=== PATIENT | male | born 1985 ===

== ENCOUNTER 2018-07-12 18:28 | Emergency (ER) | payer OTHER ==
[2018-07-12] MEDS ORDERED: CETIRIZINE HCL 5 MG TABLET ONE (19:36)
[2018-07-12] MEDS ORDERED: FAMOTIDINE 20 MG TAB ONE (19:37)
[2018-07-12] MEDS ORDERED: predniSONE 20 MG TAB ONE (19:37)
--- NOTE | 2018-07-12 19:46 | ER ---
Nurse's Notes [facility] Name: Rip Soni Age: 33 yrs Sex: Male : 1985 Arrival Date: 07/12/2018 Time: 18:28 Bed 16 Private MD: Billy Mast E Diagnosis: Dermatitis, unspecified Presentation: 07/12 18:32 Presenting complaint: Patient states: " I think I got into some poison oak or ph something, the swelling on my face has been getting worse throughout the day." Redness and swelling noted to R side of face and L jaw area, also has rash to renetta arms, denies SOB. Transition of care: patient was not received from another setting of care. Onset: The symptoms/episode began/occurred this morning. Anaphylaxis evaluation, no signs or symptoms of anaphylaxis were noted. Onset of symptoms was July 12, 2018. Risk Assessment: Do you want to hurt yourself or someone else? Patient reports no desire to harm self or others. Initial Sepsis Screen: Does the patient meet any 2 criteria? No. Patient's initial sepsis screen is negative. Does the patient have a suspected source of infection? No. Patient's initial sepsis screen is negative. Care prior to arrival: Medication(s) given: Motrin, at 1500 and Benadryl x 2. 18:32 Method Of Arrival: Ambulatory ph 18:32 Acuity: RENEE 4 ph Triage Assessment: 18:40 General: Appears uncomfortable, Behavior is calm, cooperative. Pain: Denies pain. EENT: ls4 Oral mucosa is moist. Throat is clear Denies difficulty swallowing. Neuro: No deficits noted. Neuro: Level of Consciousness is awake, alert, Oriented to person, place, time, situation. Cardiovascular: No deficits noted. Respiratory: Airway is patent Respiratory effort is even, unlabored, Respiratory pattern is regular, Denies cough, shortness of breath labored breathing. GI: No deficits noted. Derm: Skin is intact, Skin is pink, warm \\T\\ dry. Rash noted that is on nose, left cheek and left jaw arms and legs. red raised patches. pt reports that they are itchy. Musculoskeletal: No deficits noted. Historical: - Allergies: 18:35 No Known Allergies; ph - Home Meds: 18:35 None [Active]; ph - PMHx: 18:35 None; ph - PSHx: 18:35 None; ph - Immunization history:: Adult Immunizations unknown. - Social history:: Smoking status: Patient/guardian denies using tobacco, never smoked. - Ebola Screening: : Patient negative for fever greater than or equal to 101.5 degrees Fahrenheit, and additional compatible Ebola Virus Disease symptoms Patient denies exposure to infectious person Patient denies travel to an Ebola-affected area in the 21 days before illness onset No symptoms or risks identified at this time. Screenin:44 Abuse screen: Denies threats or abuse. Denies injuries from another. Nutritional ls4 screening: No deficits noted. Tuberculosis screening: No symptoms or risk factors identified. Fall Risk None identified. Assessment: 18:45 Respiratory: Airway is patent Breath sounds are clear bilaterally. ls4 19:15 Reassessment: Patient appears in no apparent distress at this time. Patient and/or cc3 family updated on plan of care and expected duration. Pain level reassessed. Patient is alert, oriented x 3, equal unlabored respirations, skin warm/dry/pink. Received this male patient from morning shift [facility] as a case of dermatitis, still to be seen by the provider as endorsed. No IV cannula in situ. 19:55 Reassessment: Dr. Saldaña discharged home the patient with prescriptions given. No IV cc3 cannula in situ. Patient left ER vitally stable and ambulatory with his friend. Vital Signs: 18:34 BP 136 / 93; Pulse 75; Resp 18; Temp 97.6; Pulse Ox 98% on R/A; Weight 84.37 kg; Height ph 6 ft. 1 in. (185.42 cm); Pain 2/10; 19:30 BP 139 / 87; Pulse 74; Resp 17 S; Pulse Ox 99% on R/A; Pain 0/10; cc3 18:34 Body Mass Index 24.54 (84.37 kg, 185.42 cm) ph ED Course: 18:28 Patient arrived in ED. as 18:28 Billy Mast MD is Private Physician. as 18:34 Triage completed. ph 18:35 Arm band placed on. ph 18:44 Patient has correct armband on for positive identification. Bed in low position. Call ls4 light in reach. Side rails up X 1. Verbal reassurance given. 18:44 No provider procedures requiring assistance completed. ls4 19:00 Patel Saldaña MD is Attending Physician. 19:01 Idnaia Wilson is Primary Nurse. cc3 19:55 Patient did not have IV access during this emergency room visit. jb4 Administered Medications: 19:30 Drug: predniSONE 40 mg Route: PO; cc3 19:55 Follow up: Response: No adverse reaction cc3 19:30 Drug: Pepcid 20 mg Route: PO; cc3 19:55 Follow up: Response: No adverse reaction cc3 19:30 Drug: ZyrTEC - Cetirizine 10 mg Route: PO; cc3 19:55 Follow up: Response: No adverse reaction cc3 Outcome: 19:46 Discharge ordered by MD. 19:55 Discharged to home ambulatory. jb4 19:55 Condition: stable 19:55 Discharge instructions given to patient, family, Instructed on discharge instructions, follow up and referral plans. medication usage, Demonstrated understanding of instructions, follow-up care, medications, Prescriptions given X 3. 19:55 Patient left the ED. jb4 Signatures: Taty Pelletier as Ayla West, RN RN wOen Quintana RN RN jb4 Patel Saldaña MD MD Idania Wilson cc3 Lola Chaudhary, RN RN ls4
--- NOTE | 2018-07-12 19:47 | EDPHYS ---
Physician Documentation [facility] Name: Rip Soni Age: 33 yrs Sex: Male : 1985 Arrival Date: 07/12/2018 Time: 18:28 Bed 16 Private MD: Billy Mast E ED Physician Patel Saldaña HPI: 07/12 19:43 This 33 yrs old Male presents to ER via Ambulatory with complaints of Allergic Reaction.gs 19:43 The patient presents with rash. Onset: The symptoms/episode began/occurred acutely, 2 gs day(s) ago, and became worse and became persistent. Associated signs and symptoms: Pertinent negatives: shortness of breath. Possible causes: poison marbella, poison oak. At home the patient or guardian has treated the symptoms with Benadryl. Severity of symptoms: At their worst the symptoms were moderate in the emergency department the symptoms are unchanged. The patient has experienced similar episodes in the past, a few times. The patient has not recently seen a physician. Historical: - Allergies: 18:35 No Known Allergies; ph - Home Meds: 18:35 None [Active]; ph - PMHx: 18:35 None; ph - PSHx: 18:35 None; ph - Immunization history:: Adult Immunizations unknown. - Social history:: Smoking status: Patient/guardian denies using tobacco, never smoked. - Ebola Screening: : Patient negative for fever greater than or equal to 101.5 degrees Fahrenheit, and additional compatible Ebola Virus Disease symptoms Patient denies exposure to infectious person Patient denies travel to an Ebola-affected area in the 21 days before illness onset No symptoms or risks identified at this time. ROS: 19:43 All other systems are negative. gs Exam: 19:43 Eyes: Pupils equal round and reactive to light, extra-ocular motions intact. Lids and gs lashes normal. Conjunctiva and sclera are non-icteric and not injected. Cornea within normal limits. Periorbital areas with no swelling, redness, or edema. ENT: Nares patent. No nasal discharge, no septal abnormalities noted. Tympanic membranes are normal and external auditory canals are clear. Oropharynx with no redness, swelling, or masses, exudates, or evidence of obstruction, uvula midline. Mucous membranes moist. Neck: Trachea midline, no thyromegaly or masses palpated, and no cervical lymphadenopathy. Supple, full range of motion without nuchal rigidity, or vertebral point tenderness. No Meningismus. Chest/axilla: Normal chest wall appearance and motion. Nontender with no deformity. No lesions are appreciated. Cardiovascular: Regular rate and rhythm with a normal S1 and S2. No gallops, murmurs, or rubs. Normal PMI, no JVD. No pulse deficits. Respiratory: Lungs have equal breath sounds bilaterally, clear to auscultation and percussion. No rales, rhonchi or wheezes noted. No increased work of breathing, no retractions or nasal flaring. Abdomen/GI: Soft, non-tender, with normal bowel sounds. No distension or tympany. No guarding or rebound. No evidence of tenderness throughout. Back: No spinal tenderness. No costovertebral tenderness. Full range of motion. MS/ Extremity: Pulses equal, no cyanosis. Neurovascular intact. Full, normal range of motion. Neuro: Awake and alert, GCS 15, oriented to person, place, time, and situation. Cranial nerves II-XII grossly intact. Motor strength 5/5 in all extremities. Sensory grossly intact. Cerebellar exam normal. Normal gait. 19:43 Head/face: Noted is rash, of the left jaw and right uatsdin. 19:43 Skin: rash a moderate rash is noted, rash can be described as excoriated, macular, contact dermatitis, on the right cheek and left jaw. 19:45 Skin: on the right hand and left hand. Vital Signs: 18:34 BP 136 / 93; Pulse 75; Resp 18; Temp 97.6; Pulse Ox 98% on R/A; Weight 84.37 kg; Height ph 6 ft. 1 in. (185.42 cm); Pain 2/10; 19:30 BP 139 / 87; Pulse 74; Resp 17 S; Pulse Ox 99% on R/A; Pain 0/10; cc3 18:34 Body Mass Index 24.54 (84.37 kg, 185.42 cm) ph MDM: 19:15 Patient medically screened. gs 19:45 Differential diagnosis: angioedema, urticaria, contact dermatitis. Data reviewed: vital gs signs, nurses notes. Administered Medications: 19:30 Drug: predniSONE 40 mg Route: PO; cc3 19:55 Follow up: Response: No adverse reaction cc3 19:30 Drug: Pepcid 20 mg Route: PO; cc3 19:55 Follow up: Response: No adverse reaction cc3 19:30 Drug: ZyrTEC - Cetirizine 10 mg Route: PO; cc3 19:55 Follow up: Response: No adverse reaction cc3 Disposition: 07/12/18 19:46 Discharged to Home. Impression: Dermatitis, unspecified. - Condition is Stable. - Discharge Instructions: Contact Dermatitis, [id number]. - Prescriptions for Pepcid 20 mg Oral Tablet - take 1 tablet by ORAL route every 12 hours for 5 days; 10 tablet. Zyrtec 10 mg Oral Tablet - take 1 tablet by ORAL route once daily As needed; 20 tablet. Prednisone 20 mg Oral Tablet - take 2 tablet by ORAL route once daily for 5 days; 10 tablet. - Medication Reconciliation Form, Thank You Letter, Antibiotic Education, Prescription Opioid Use form. - Follow up: Private Physician; When: 2 - 3 days; Reason: Recheck today's complaints. Signatures: Ayla West RN RN Owen Quintana RN RN jb4 Patel Saldaña MD MD Idania Wilson 3 Lola Chaudhary RN RN ls4 Corrections: (The following items were deleted from the chart) 19:55 19:46 07/12/2018 19:46 Discharged to Home. Impression: Dermatitis, unspecified. jb4 Condition is Stable. Forms are Medication Reconciliation Form, Thank You Letter, Antibiotic Education, Prescription Opioid Use. Follow up: Private Physician; When: 2 - 3 days; Reason: Recheck today's complaints.
== END 2018-07-12 19:55 | disposition home or self-care (01) ==
LOC: ER 18:28
DX: L30.9 Dermatitis, unspecified (principal)
CPT/HCPCS: 99283; J7512

== ENCOUNTER 2018-07-14 07:21 | Emergency (ER) | payer OTHER ==
[2018-07-14] MEDS ORDERED: DEXAMETHASONE 10 MG/ML VIAL ONE (07:52)
[2018-07-14] MEDS ORDERED: DOXYCYCLINE 100 MG CAP PO ONE (07:53)
[2018-07-14] MEDS ORDERED: FAMOTIDINE 20 MG/2 ML VIAL IV ONE (07:53)
[2018-07-14] MEDS ORDERED: DIPHENHYDRAMINE 25 MG TAB/CAP ONE (07:53)
[2018-07-14] MEDS ORDERED: NA CHLORIDE 0.9% 1,000 ML ONE (07:53)
[2018-07-14] MEDS ORDERED: SMZ./TMP. 800/160 MG TABLET ONE (07:53)
[2018-07-14] MEDS ORDERED: MUPIROCIN 2% OINT 22GM TUBE TOP ONE (07:53)
[2018-07-14 07:58] LABS: Absolute Monocytes 0.7 K/uL (0.1-1.3); Absolute Neutrophil 5.8 K/uL (1.8-8.0); Basophils % 0.7 % (0-1.3); Eosinophils % 8.1 % (0-4.4); Hematocrit 41.6 % (39.6-49.0); Lymphocytes % 21.7 % (15.3-44.8); MCH 29.9 pg (27.0-35.0); MCV 85.5 fL (80-100); MPV 7.8 fL (7.6-11.3); Monocytes % 7.5 % (3.3-12.3); RBC Red Blood Cell Count 4.87 M/uL (4.33-5.43)
[2018-07-14 08:11] LABS: ALT/SGPT 29 U/L (12-78); AST/SGOT 13 U/L (15-37); Albumin 3.8 g/dL (3.4-5.0); Alkaline Phosphatase 42 U/L (45-117); BUN Blood Urea Nitrogen 14 mg/dL (7-18); Bicarbonate 26 mmol/L (21-32); Bilirubin Total 0.4 mg/dL (0.2-1.0); Glucose Level 122 mg/dL (74-106); Potassium 3.7 mmol/L (3.5-5.1); Protein, Total 7.1 g/dL (6.4-8.2); Sodium Level 139 mmol/L (136-145)
--- NOTE | 2018-07-14 08:38 | ER ---
Nurse's Notes [facility] Name: Rip Soni Age: 33 yrs Sex: Male : 1985 Arrival Date: 07/14/2018 Time: 07:23 Bed 13 Private MD: Billy Mast E Diagnosis: Allergic contact dermatitis;Irritant contact dermatitis;Impetigo Presentation: 07/14 07:25 Presenting complaint: Patient states: "[place] and I aa5 think I got poison marbella". Pt reports being seen here Thursday and prescribed Prednisone 40mg Daily, Zyrtec, and Pepcid. Pt reports facial swelling has gotten worse. Pt c/o face pain. 07:25 Transition of care: patient was not received from another setting of care. Onset of aa5 symptoms was June 2018. Risk Assessment: Do you want to hurt yourself or someone else? Patient reports no desire to harm self or others. Initial Sepsis Screen: Does the patient meet any 2 criteria? No. Patient's initial sepsis screen is negative. Does the patient have a suspected source of infection? No. Patient's initial sepsis screen is negative. Care prior to arrival: None. 07:25 Method Of Arrival: Ambulatory aa5 07:25 Acuity: RENEE 3 aa5 Historical: - Allergies: 07:25 No Known Allergies; aa5 - PMHx: 07:25 None; aa5 - PSHx: 07:25 None; aa5 - Immunization history:: Adult Immunizations up to date. - Ebola Screening: : No symptoms or risks identified at this time. - Family history:: not pertinent. - Social history:: Smoking status: Patient/guardian denies using tobacco. Screenin:04 Abuse screen: Denies threats or abuse. Nutritional screening: No deficits noted. la1 Tuberculosis screening: No symptoms or risk factors identified. Fall Risk None identified. Assessment: 08:04 General: Appears in no apparent distress. Behavior is calm, cooperative, appropriate la1 for age. Pain: Denies pain. Neuro: Level of Consciousness is awake, alert, obeys commands, Oriented to person, place, time, situation. Cardiovascular: Capillary refill < 3 seconds Patient's skin is warm and dry. Respiratory: Airway is patent Respiratory effort is even, unlabored, Respiratory pattern is regular, Breath sounds are clear bilaterally. GI: No signs and/or symptoms were reported involving the gastrointestinal system. : No signs and/or symptoms were reported regarding the genitourinary system. Derm: Rash noted that is itchy, red, raised, urticaria, on face. Vital Signs: 07:27 BP 130 / 94; Pulse 88; Resp 16 S; Temp 97.6(TE); Pulse Ox 97% on R/A; Weight 83.91 kg aa5 (R); Height 6 ft. 1 in. (185.42 cm) (R); Pain 5/10; 08:47 BP 130 / 74; Pulse 84; Resp 16; Temp 98.2; Pulse Ox 98% on R/A; la1 07:27 Body Mass Index 24.41 (83.91 kg, 185.42 cm) aa5 ED Course: 07:23 Patient arrived in ED. mr 07:23 Billy Mast MD is Private Physician. mr 07:25 Miller Garsia MD is Attending Physician. rufina 07:25 Arm band placed on. aa5 07:31 Triage completed. aa5 08:02 Colby Reddy, RN is Primary Nurse. la1 08:04 Call light in reach. Side rails up X 1. la1 08:04 Inserted saline lock: 20 gauge in right hand, using aseptic technique. Blood collected. la1 08:38 Billy Mast MD is Referral Physician. rufina 08:47 IV discontinued, intact, bleeding controlled, No redness/swelling at site. Pressure la1 dressing applied. 08:47 No provider procedures requiring assistance completed. la1 Administered Medications: 08:02 Drug: Benadryl 50 mg Route: PO; la1 08:04 Follow up: Response: No adverse reaction la1 08:02 Drug: Pepcid 40 mg Route: IVP; Site: right hand; la1 08:04 Follow up: Response: No adverse reaction la1 08:02 Drug: Bactroban Ointment 2 % 1 application Route: Topical; Site: face; la1 08:03 Follow up: Response: No adverse reaction la1 08:02 Drug: Doxycycline 200 mg Route: PO; la1 08:03 Follow up: Response: No adverse reaction la1 08:02 Drug: Bactrim (160 mg-800 mg (DS) 1 tablet Route: PO; la1 08:03 Follow up: Response: No adverse reaction la1 08:02 Drug: Decadron - Dexamethasone 10 mg Route: IVP; Site: right hand; la1 08:03 Follow up: Response: No adverse reaction la1 08:03 Drug: NS 0.9% 1000 ml Route: IV; Rate: 1 bolus; Site: right hand; la1 08:46 Follow up: IV Status: Completed infusion la1 Outcome: 08:38 Discharge ordered by . rufina 08:47 Discharged to home ambulatory. la1 08:47 Condition: stable 08:47 Discharge instructions given to patient, Instructed on medication usage, Demonstrated understanding of instructions, follow-up care, medications, Prescriptions given X 6 08:48 Patient left the ED. la1 Signatures: Miller Garsia MD MD cha Rivera, Mary mr Calderon, Audri, RN RN aa5 Colby Reddy RN RN la1
--- NOTE | 2018-07-14 08:39 | EDPHYS ---
Physician Documentation [facility] Name: Rip Soni Age: 33 yrs Sex: Male : 1985 Arrival Date: 07/14/2018 Time: 07:23 Bed 13 Private MD: Billy Mast E ED Physician Miller Garsia HPI: 07/14 07:38 This 33 yrs old Male presents to ER via Ambulatory with complaints of Facial rufina Swelling. 07:38 The patient presents with itching, localized swelling, rash, redness of skin, swelling rufina of the lips. Onset: The symptoms/episode began/occurred 3 day(s) ago. Associated signs and symptoms: The patient has no apparent associated signs or symptoms. Possible causes: poison janelle, poison oak. At home the patient or guardian has treated the symptoms with Benadryl, steroids. Severity of symptoms: At their worst the symptoms were moderate in the emergency department the symptoms are unchanged despite home interventions. The patient has not experienced similar symptoms in the past. Historical: - Allergies: 07:25 No Known Allergies; aa5 - PMHx: 07:25 None; aa5 - PSHx: 07:25 None; aa5 - Immunization history:: Adult Immunizations up to date. - Ebola Screening: : No symptoms or risks identified at this time. - Family history:: not pertinent. - Social history:: Smoking status: Patient/guardian denies using tobacco. ROS: 07:38 Constitutional: Negative for fever, chills, and weight loss, Eyes: Negative for injury, rufina pain, redness, and discharge, ENT: Negative for injury, pain, and discharge, Neck: Negative for injury, pain, and swelling, Cardiovascular: Negative for chest pain, palpitations, and edema, Respiratory: Negative for shortness of breath, cough, wheezing, and pleuritic chest pain, Abdomen/GI: Negative for abdominal pain, nausea, vomiting, diarrhea, and constipation, Back: Negative for injury and pain, : Negative for injury, bleeding, discharge, and swelling, MS/Extremity: Negative for injury and deformity, Neuro: Negative for headache, weakness, numbness, tingling, and seizure, Psych: Negative for depression, anxiety, suicide ideation, homicidal ideation, and hallucinations, Allergy/Immunology: Negative for hives, rash, and allergies, Endocrine: Negative for neck swelling, polydipsia, polyuria, polyphagia, and marked weight changes, Hematologic/Lymphatic: Negative for swollen nodes, abnormal bleeding, and unusual bruising. 07:38 Skin: Positive for cellulitis, swelling, of the face. Exam: 07:38 Constitutional: This is a well developed, well nourished patient who is awake, alert, rufina and in no acute distress. Eyes: Pupils equal round and reactive to light, extra-ocular motions intact. Lids and lashes normal. Conjunctiva and sclera are non-icteric and not injected. Cornea within normal limits. Periorbital areas with no swelling, redness, or edema. ENT: Nares patent. No nasal discharge, no septal abnormalities noted. Tympanic membranes are normal and external auditory canals are clear. Oropharynx with no redness, swelling, or masses, exudates, or evidence of obstruction, uvula midline. Mucous membranes moist. Neck: Trachea midline, no thyromegaly or masses palpated, and no cervical lymphadenopathy. Supple, full range of motion without nuchal rigidity, or vertebral point tenderness. No Meningismus. Chest/axilla: Normal chest wall appearance and motion. Nontender with no deformity. No lesions are appreciated. Cardiovascular: Regular rate and rhythm with a normal S1 and S2. No gallops, murmurs, or rubs. Normal PMI, no JVD. No pulse deficits. Respiratory: Lungs have equal breath sounds bilaterally, clear to auscultation and percussion. No rales, rhonchi or wheezes noted. No increased work of breathing, no retractions or nasal flaring. Abdomen/GI: Soft, non-tender, with normal bowel sounds. No distension or tympany. No guarding or rebound. No evidence of tenderness throughout. Back: No spinal tenderness. No costovertebral tenderness. Full range of motion. Male : Normal genitalia with no discharge or lesions. MS/ Extremity: Pulses equal, no cyanosis. Neurovascular intact. Full, normal range of motion. Neuro: Awake and alert, GCS 15, oriented to person, place, time, and situation. Cranial nerves II-XII grossly intact. Motor strength 5/5 in all extremities. Sensory grossly intact. Cerebellar exam normal. Normal gait. Psych: Awake, alert, with orientation to person, place and time. Behavior, mood, and affect are within normal limits. 07:38 Skin: Appearance: Color: erythematous, Temperature: warm, Moisture: normal moisture, petechiae, not noted, ecchymosis, not noted, swelling, noted on the face, that are moderate, cellulitis, that is mild, that is moderate, on the face. Vital Signs: 07:27 BP 130 / 94; Pulse 88; Resp 16 S; Temp 97.6(TE); Pulse Ox 97% on R/A; Weight 83.91 kg aa5 (R); Height 6 ft. 1 in. (185.42 cm) (R); Pain 5/10; 08:47 BP 130 / 74; Pulse 84; Resp 16; Temp 98.2; Pulse Ox 98% on R/A; la1 07:27 Body Mass Index 24.41 (83.91 kg, 185.42 cm) aa5 MDM: 07:25 Patient medically screened. [facility] 07:42 Data reviewed: vital signs, nurses notes, lab test result(s). [facility] 07/14 07:37 Order name: CBC with Diff [facility] 07/14 07:37 Order name: Comprehensive Metabolic Panel [facility] 07/14 07:38 Order name: CBC with Automated Diff; Complete Time: 08:33 EDMS 07/14 07:38 Order name: Comprehensive Metabolic Panel; Complete Time: 08:33 EDMS Administered Medications: 08:02 Drug: Benadryl 50 mg Route: PO; la1 08:04 Follow up: Response: No adverse reaction la1 08:02 Drug: Pepcid 40 mg Route: IVP; Site: right hand; la1 08:04 Follow up: Response: No adverse reaction la1 08:02 Drug: Bactroban Ointment 2 % 1 application Route: Topical; Site: face; la1 08:03 Follow up: Response: No adverse reaction la1 08:02 Drug: Doxycycline 200 mg Route: PO; la1 08:03 Follow up: Response: No adverse reaction la1 08:02 Drug: Bactrim (160 mg-800 mg (DS) 1 tablet Route: PO; la1 08:03 Follow up: Response: No adverse reaction la1 08:02 Drug: Decadron - Dexamethasone 10 mg Route: IVP; Site: right hand; la1 08:03 Follow up: Response: No adverse reaction la1 08:03 Drug: NS 0.9% 1000 ml Route: IV; Rate: 1 bolus; Site: right hand; la1 08:46 Follow up: IV Status: Completed infusion la1 Disposition: 07/14/18 08:38 Discharged to Home. Impression: Allergic contact dermatitis, Irritant contact dermatitis, Impetigo. - Condition is Stable. - Discharge Instructions: Cellulitis, Adult, Contact Dermatitis, Poison Janelle Dermatitis, Cellulitis, Adult, [id number], Poison Janelle Dermatitis, [id number], Impetigo, Adult. - Prescriptions for dexamethasone 2 mg Oral tablet - take 1 tablet by ORAL route 2 times per day; 12 tablet. Bactroban 2 % Topical Ointment - Apply to affected area 1 application by TOPICAL route every 12 hours; 45 gram. Benadryl 25 mg Oral Capsule - take 1 capsule by ORAL route every 6 hours As needed; 30 tablet. Pepcid 20 mg Oral Tablet - take 1 tablet by ORAL route every 12 hours for 10 days; 20 tablet. Doxycycline Hyclate 100 mg Oral Tablet - take 1 tablet by ORAL route every 12 hours; 20 tablet. Bactrim DS 800- 160 mg Oral Tablet - take 1 tablet by ORAL route every 12 hours for 10 days; 20 tablet. - Medication Reconciliation Form, Thank You Letter, Antibiotic Education, Prescription Opioid Use, Work release form form. - Follow up: Billy Mast; When: 2 - 3 days; Reason: Recheck today's complaints, Continuance of care, Re-evaluation by your physician. - Problem is new. - Symptoms have improved. Signatures: Dispatcher [employer] EDNE Miller Garsia MD MD cha Calderon, Audri RN RN aa5 Colby Reddy RN RN la1 Corrections: (The following items were deleted from the chart) 08:48 08:38 07/14/2018 08:38 Discharged to Home. Impression: Allergic contact dermatitis; la1 Irritant contact dermatitis; Impetigo. Condition is Stable. Discharge Instructions: Cellulitis, Adult, Contact Dermatitis, Poison Janelle Dermatitis, Cellulitis, Adult, [id number], Poison Janelle Dermatitis, Vapo-[id number]-Tqdb, Impetigo, Adult. Prescriptions for dexamethasone 2 mg Oral tablet - take 1 tablet by ORAL route 2 times per day; 12 tablet, Bactroban 2 % Topical Ointment - Apply to affected area 1 application by TOPICAL route every 12 hours; 45 gram, Benadryl 25 mg Oral Capsule - take 1 capsule by ORAL route every 6 hours As needed; 30 tablet, Pepcid 20 mg Oral Tablet - take 1 tablet by ORAL route every 12 hours for 10 days; 20 tablet, Doxycycline Hyclate 100 mg Oral Tablet - take 1 tablet by ORAL route every 12 hours; 20 tablet, Bactrim DS 800-160 mg Oral Tablet - take 1 tablet by ORAL route every 12 hours for 10 days; 20 tablet. and Forms are Medication Reconciliation Form, Thank You Letter, Antibiotic Education, Prescription Opioid Use. Follow up: Billy Mast; When: 2 - 3 days; Reason: Recheck today's complaints, Continuance of care, Re-evaluation by your physician. Problem is new. Symptoms have improved. rufina
== END 2018-07-14 08:48 | disposition home or self-care (01) ==
LOC: ER 07:21
DX: L01.00 Impetigo, unspecified (principal); L23.9 Allergic contact dermatitis, unspecified cause; L24.9 Irritant contact dermatitis, unspecified cause
CPT/HCPCS: 36415; 80053; 85025; 96361; 96374; 96375; 99284; J1100; J7030